=== PATIENT | male | born 1945 | race Two or more races ===

== ENCOUNTER → 2021-01-25 07:46 | Outpatient (CLI) | payer MEDICARE, MEDICAID, SELFPAY ==
--- NOTE | 2021-01-25 07:57 | MR_ITS ---
PROCEDURE: MR HEAD/BRAIN WO/W CON CLINICAL INDICATION: Seizures versus syncope COMPARISON: No exams were available for comparison TECHNIQUE: Routine multiplanar multi echo sequences are performed without and with gadolinium enhancement. FINDINGS: No midline shift, mass effect, intracranial hemorrhage, or hydrocephalus is evident. The cerebellopontine angles, and brainstem have an unremarkable appearance. There is generalized atrophy. There are few T2 white matter hyperintensities. No enhancing lesions are evident. The pituitary, optic chiasm, corpus callosum, and craniocervical junction have an unremarkable appearance. No mastoid effusion or sinus air-fluid level. There is a 3 mm area of increased T2 signal in the inferior aspect of the left cerebellum suggesting a small remote area of infarction/cystic encephalomalacia. The hippocampal gyri have an unremarkable appearance in the temporal horns are symmetric. IMPRESSION: No acute intracranial findings. 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
[2021-01-25 08:34] LABS: Chloride 106 mmol/L (98-107); Potassium 4.6 mmoL/L (3.5-5.1); Sodium 143 mmol/L (136-145)
[2021-01-25 08:37] LABS: Anion Gap 9.6 mEq/L (5-15); Blood Urea Nitrogen 17 mg/dl (9-20); Calcium 8.8 mg/dl (8.4-10.2); Carbon Dioxide 32 mmol/L (22.0-30.0); Estimated Glomerular Filt Rate 50 ml/min (>60); GFR (African American) 60 ML/MIN (>60); Glucose 114 mg/dl (74-100)
== END ==
PROVIDERS: PCP Family Medicine; Visit Provider Specialist
DX: R55 Syncope and collapse (principal); R56.9 Unspecified convulsions; E66.01 Morbid (severe) obesity due to excess calories
CPT/HCPCS: 36415; 70553; 80048; 94762; 95816; A9576